=== PATIENT | female | born 1930 | race Caucasian/White ===

== ENCOUNTER 2016-07-23 20:01 | Inpatient (IN) | payer MEDICARE ==
[~2016-07-23] VITALS: Ht 162.6 cm; Wt 63.2 kg
--- NOTE | 2016-07-24 17:14 | NUR ---
1500 I/O CATH ATTEMPTED TO OBTAIN URINE FOR UA. HOWEVER UNSUCCESSFUL. PATIENT WAS FINALLY ABLE TO VOID IN BED RENDON.
--- NOTE | 2016-07-25 15:48 | NUR ---
OVERALL PATIENT IS MUCH IMPROVED TODAY. LITHIUM LEVEL STILL PENDING. MORE ALERT AND VERBAL TODAY. HAS PARTICIPATED WITH PHYSICAL THERAPY. WALKED FROM BED TO RECLINER. HOWEVER UNSTEADY AND UNSURE OF HERSELF. HAS SAT IN RECLINER TODAY WELL.
== END 2016-07-27 13:15 | DRG 682 ==
LOC: ER 20:01 → MED 07-24 02:40
PROVIDERS: ADMIT Internal Medicine
DX: N17.9 Acute kidney failure, unspecified (principal); G92 Toxic encephalopathy; T43.595A Adverse effect of other antipsychotics and neuroleptics, initial encounter; F31.9 Bipolar disorder, unspecified; E86.0 Dehydration; I10 Essential (primary) hypertension; F03.90 Unspecified dementia, unspecified severity, without behavioral disturbance, psychotic disturbance, mood disturbance, and anxiety; F39 Unspecified mood [affective] disorder; Z79.899 Other long term (current) drug therapy; R11.2 Nausea with vomiting, unspecified; R19.7 Diarrhea, unspecified; R26.9 Unspecified abnormalities of gait and mobility; R25.1 Tremor, unspecified
CPT/HCPCS: 36415; 97162-GP; 97166; J1650; J2060

== ENCOUNTER 2016-07-23 20:01 | Emergency (ER) | payer MEDICARE | END 2016-07-24 02:39 | disposition critical access hospital (66) | LOC: ER 20:01 | DX: R41.82 Altered mental status, unspecified (principal); E86.0 Dehydration; R11.2 Nausea with vomiting, unspecified; R53.1 Weakness; I10 Essential (primary) hypertension; F31.9 Bipolar disorder, unspecified | CPT/HCPCS: 36415; 51701; 96361; 96374; J2060 ==